=== PATIENT | male | born 1955 | race Caucasian/White ===

== ENCOUNTER 2016-05-06 16:37 | Inpatient (IN) | payer OTHER, MEDICARE, BC ==
[~2016-05-06] VITALS: Ht 177.8 cm; Wt 91.0 kg
[2016-05-06 16:38] VITALS: BP 122/84; PULSE 90; RESP 24; TEMP 98.2; O2SAT 93
[2016-05-06 16:42] VITALS: BP 122/84; PULSE 79; RESP 24; O2SAT 95
[2016-05-06] MEDS ORDERED: HYDROmorphone HCL PF 1 MG/ML VIAL IV PUSH ONE ×2 (17:00→17:45)
[2016-05-06 17:16] LABS: AUTOMATED NEUTROPHIL # 5.4 TH/MM3 (1.8-7.7); BASOPHIL # 0.1 TH/MM3 (0-0.2); BASOPHIL % 0.7 % (0.0-2.0); EOSINOPHIL # 0.3 TH/MM3 (0-0.4); EOSINOPHIL % 2.8 % (0.0-4.0); HEMATOCRIT 45.3 % (39.0-51.0); HEMO FLAGS DIFF FINAL; LYMPH % 32.1 % (9.0-44.0); LYMPHOCYTE # 3.2 TH/MM3 (1.0-4.8); MEAN CELL VOLUME 96.5 FL (80.0-100.0); MEAN CORPUSCULAR HEMOGLOBIN 33.6 PG (27.0-34.0); MEAN CORPUSCULAR HGB CONC 34.8 % (32.0-36.0); NEUT % 53.4 % (16.0-70.0); PLATELET COUNT 272 TH/MM3 (150-450); RED BLOOD COUNT 4.69 MIL/MM3 (4.50-5.90); RED CELL DISTRIBUTION WIDTH 13.5 % (11.6-17.2)
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
[2016-05-06 17:27] LABS: PROTHROMBIN TIME - PATIENT 10.7 SEC (9.8-11.6)
[2016-05-06 17:35] LABS: BICARBONATE 24.8 MEQ/L (21.0-32.0); POTASSIUM 3.7 MEQ/L (3.5-5.1)
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
[2016-05-06 17:46] VITALS: BP 136/82; PULSE 74; RESP 19; O2SAT 99
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
[2016-05-06] MEDS ORDERED: IOHEXOL 350 MG/ML 10 ML VIAL (for RAD DIAG) IV ONE (18:17)
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
[2016-05-06 18:32] VITALS: BP 162/86; PULSE 88; RESP 28; O2SAT 100
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
[2016-05-06] MEDS ORDERED: MISCELLANEOUS NURSING INFORMATION XX SCH (19:15)
[2016-05-06] MEDS ORDERED: SODIUM CHLORIDE 0.9% FLUSH 5 ML FLUSH IVF PRN (19:15)
[2016-05-06] MEDS ORDERED: CHLORHEXIDINE GLUCONATE 2 % 1 PACK (2 CLOTHS) TOP PRN (19:15)
[2016-05-06] MEDS ORDERED: ACETAMINOPHEN/HYDROcodone 325 MG/5 MG TAB PO PRN (19:15)
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
[2016-05-06] MEDS: SODIUM CHLOR 0.9% 1000 ML INJ 1,000 ML IV SCH (19:41)
[2016-05-06] MEDS: ACETAMINOPHEN/HYDROcodone 325 MG/5 MG TAB PO PRN (19:42)
[2016-05-06] MEDS: KETOROLAC TROMETHAMINE 30 MG/ML (IVP) VIAL IV PUSH SCH (19:42)
[2016-05-06 19:43] VITALS: BP 156/86; PULSE 98; RESP 28; O2SAT 100
[2016-05-06 21:00] VITALS: BP 143/81; PULSE 95; RESP 19; TEMP 98.7; O2SAT 98
[2016-05-06] MEDS: HYDROmorphone HCL PF 1 MG/ML VIAL IVP PRN (21:12)
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
[2016-05-07] VITALS: BP 134/78; PULSE 82; RESP 17; TEMP 96.8; O2SAT 99
[2016-05-07] MEDS: KETOROLAC TROMETHAMINE 30 MG/ML (IVP) VIAL IV PUSH SCH ×5 (00:23→23:24)
[2016-05-07] MEDS: ACETAMINOPHEN/HYDROcodone 325 MG/5 MG TAB PO PRN ×5 (00:25→22:02)
[2016-05-07] MEDS ORDERED: CHLORHEXIDINE GLUCONATE 2 % 1 PACK (2 CLOTHS) TOP SCH (04:00)
[2016-05-07 05:00] LABS: AUTOMATED NEUTROPHIL # 6.8 TH/MM3 (1.8-7.7); BASOPHIL # 0.1 TH/MM3 (0-0.2); BASOPHIL % 1.1 % (0.0-2.0); EOSINOPHIL # 0.2 TH/MM3 (0-0.4); EOSINOPHIL % 1.5 % (0.0-4.0); HEMATOCRIT 41.7 % (39.0-51.0); HEMO FLAGS DIFF FINAL; LYMPHOCYTE # 2.2 TH/MM3 (1.0-4.8); MEAN CELL VOLUME 97.4 FL (80.0-100.0); MEAN CORPUSCULAR HEMOGLOBIN 33.3 PG (27.0-34.0); MEAN CORPUSCULAR HGB CONC 34.1 % (32.0-36.0); MONO % 10.4 % (0.0-8.0); PLATELET COUNT 191 TH/MM3 (150-450); RED BLOOD COUNT 4.28 MIL/MM3 (4.50-5.90); RED CELL DISTRIBUTION WIDTH 13.6 % (11.6-17.2); WHITE BLOOD COUNT 10.3 TH/MM3 (4.0-11.0)
[2016-05-07] MEDS: SODIUM CHLOR 0.9% 1000 ML INJ 1,000 ML IV SCH (05:30)
[2016-05-07 05:36] LABS: BICARBONATE 24.7 MEQ/L (21.0-32.0); POTASSIUM 3.8 MEQ/L (3.5-5.1)
[2016-05-07] MEDS ORDERED: SODIUM CHLORIDE 0.9% FLUSH 5 ML FLUSH IV FLUSH PRN (07:15)
[2016-05-07] MEDS ORDERED: RESP: ALBUTEROL 2.5 MG/IPRATROPIUM 0.5 MG NEB (PRN) INH (07:15)
[2016-05-07 08:00] VITALS: BP 117/64; PULSE 67; RESP 16; TEMP 96.5; O2SAT 96
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
[2016-05-07] MEDS: HYDROmorphone HCL PF 1 MG/ML VIAL IVP PRN ×2 (08:53→20:01)
[2016-05-07] MEDS: LIDOCAINE HCL 5% PATCH TD SCH (08:57)
[2016-05-07] MEDS: METHOCARBAMOL 500 MG TAB PO SCH ×3 (08:57→23:23)
[2016-05-07] MEDS: FAMOTIDINE 20 MG TAB PO SCH ×2 (08:58→20:01)
[2016-05-07] MEDS: ENOXAPARIN SODIUM 30 MG/0.3 ML SYRINGE SQ SCH ×2 (08:58→20:01)
[2016-05-07] MEDS: SODIUM CHLORIDE 0.9% FLUSH 5 ML FLUSH IV FLUSH SCH ×2 (08:58→20:01)
[2016-05-07] MEDS: DOCUSATE SODIUM 50 MG/SENNA 8.6 MG TAB PO SCH ×2 (08:58→20:01)
[2016-05-07] MEDS: RESP: ALBUTEROL 2.5 MG/IPRATROPIUM 0.5 MG NEB (SCH) INH ×3 (09:45→19:33)
[2016-05-07 12:00] VITALS: BP 130/69; PULSE 73; RESP 18; TEMP 95.9; O2SAT 95
[2016-05-07] MEDS ORDERED: HYDR-3516 PO (12:40)
[2016-05-07] MEDS ORDERED: SENN1TAB PO (12:53)
[2016-05-07] MEDS ORDERED: MILKSUS PO (12:53)
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
[2016-05-07 16:00] VITALS: BP 140/68; PULSE 71; RESP 18; TEMP 96.7; O2SAT 99
[2016-05-07 20:31] VITALS: BP 137/69; PULSE 62; RESP 18; TEMP 98.2; O2SAT 94
[2016-05-07] MEDS ORDERED: MAGNESIUM HYDROXIDE SUSP 30 ML CUP PO SCH (21:00)
[2016-05-07] MEDS ORDERED: REMOVE OLD PATCH T-DERMAL SCH (21:00)
[2016-05-08 00:10] VITALS: BP 143/73; PULSE 67; RESP 18; TEMP 98.2; O2SAT 96
[2016-05-08] MEDS: ACETAMINOPHEN/HYDROcodone 325 MG/5 MG TAB PO PRN ×4 (03:58→13:06)
[2016-05-08] MEDS: KETOROLAC TROMETHAMINE 30 MG/ML (IVP) VIAL IV PUSH SCH ×2 (03:58→11:45)
[2016-05-08 04:18] LABS: AUTOMATED NEUTROPHIL # 4.9 TH/MM3 (1.8-7.7); BASOPHIL % 0.6 % (0.0-2.0); EOSINOPHIL # 0.2 TH/MM3 (0-0.4); EOSINOPHIL % 3.2 % (0.0-4.0); HEMATOCRIT 39.4 % (39.0-51.0); HEMO FLAGS DIFF FINAL; LYMPH % 21.2 % (9.0-44.0); LYMPHOCYTE # 1.6 TH/MM3 (1.0-4.8); MEAN CELL VOLUME 96.5 FL (80.0-100.0); MEAN CORPUSCULAR HEMOGLOBIN 33.5 PG (27.0-34.0); MEAN CORPUSCULAR HGB CONC 34.7 % (32.0-36.0); MONO % 11.5 % (0.0-8.0); NEUT % 63.5 % (16.0-70.0); PLATELET COUNT 202 TH/MM3 (150-450); RED BLOOD COUNT 4.08 MIL/MM3 (4.50-5.90); RED CELL DISTRIBUTION WIDTH 13.3 % (11.6-17.2); WHITE BLOOD COUNT 7.7 TH/MM3 (4.0-11.0)
[2016-05-08 05:17] LABS: BICARBONATE 27.4 MEQ/L (21.0-32.0); MAGNESIUM 2.3 MG/DL (1.5-2.5)
[2016-05-08] MEDS: RESP: ALBUTEROL 2.5 MG/IPRATROPIUM 0.5 MG NEB (SCH) INH (07:43)
[2016-05-08 07:46] VITALS: O2SAT 95
[2016-05-08 08:00] VITALS: BP 129/71; PULSE 67; RESP 18; TEMP 96.8; O2SAT 99
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
[2016-05-08] MEDS: FAMOTIDINE 20 MG TAB PO SCH (08:49)
[2016-05-08] MEDS: LIDOCAINE HCL 5% PATCH TD SCH ×2 (08:49→09:43)
[2016-05-08] MEDS: METHOCARBAMOL 500 MG TAB PO SCH (08:49)
[2016-05-08] MEDS: DOCUSATE SODIUM 50 MG/SENNA 8.6 MG TAB PO SCH (08:51)
[2016-05-08] MEDS: ENOXAPARIN SODIUM 30 MG/0.3 ML SYRINGE SQ SCH (08:52)
[2016-05-08] MEDS: SODIUM CHLORIDE 0.9% FLUSH 5 ML FLUSH IV FLUSH SCH (08:52)
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
[2016-05-08 12:00] VITALS: BP 128/73; PULSE 70; RESP 20; TEMP 98; O2SAT 95
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
== END 2016-05-08 13:55 | disposition home or self-care (01) | DRG 200 ==
LOC: NEPC 16:37 → NEDA 18:56 → N07A 20:51
PROVIDERS: ADMIT Surgery Trauma Surgery; ATTEND Surgery Trauma Surgery
DX: S27.0XXA Traumatic pneumothorax, initial encounter (principal); S22.42XA Multiple fractures of ribs, left side, initial encounter for closed fracture; V28.4XXA Motorcycle driver injured in noncollision transport accident in traffic accident, initial encounter; Y92.488 Other paved roadways as the place of occurrence of the external cause; Y93.89 Activity, other specified; Z72.0 Tobacco use; Y90.1 Blood alcohol level of 20-39 mg/100 ml
CPT/HCPCS: 70450; 71010; 71260; 72125; 72170; 73020; 74177; 80048; 80307; 83735; 85025; 85610; 85730; 94150; 94640; 94664; 94667; 94668; 96374; 96376; J1170; J1650; J1885; J7030; Q9967